=== PATIENT | male | born 1975 | race Two or more races ===

== ENCOUNTER 2023-12-23 23:57 | Emergency (ER) | payer MEDICAID, OTHER ==
[~2023-12-23] VITALS: Ht 172.7 cm; Wt 110.0 kg
[2023-12-24 00:18] VITALS: TEMP 98.2
[2023-12-24] MEDS: hydrALAZINE HCL 20 MG/ML VL IV ONE ×2 (00:32→04:13)
[2023-12-24] MEDS: OXYMETAZOLINE HCL 0.05 % NASAL SPRAY 15ML EACHNOSTRI ONE (00:32)
[2023-12-24] MEDS: cloNIDine HCL 0.1 MG TAB PO ONE ×2 (00:32→04:11)
[2023-12-24 00:35] LABS: Basophils # (auto) 0.1 10 ^3/uL (0-0.2); Eosinophils # (auto) 1.1 10 ^3/uL (0-0.8); Eosinophils % (auto) 10.1 % (0.0-7.0); Hematocrit 45.2 % (41.0-53.0); Hemoglobin 15.9 g/dL (13.5-17.5); Lymphocytes # (auto) 3.2 10 ^3/uL (0.4-5.4); Lymphocytes % (auto) 29.2 % (10.0-50.0); Mean Corpuscular Hemoglobin 30.6 pg (28.0-32.0); Mean Corpuscular Hgb Conc. 35.1 g/dL (32.0-36.0); Monocytes # (auto) 0.9 10 ^3/uL (0-1.3); Monocytes % (auto) 8.4 % (0.0-12.0); Neutrophils # (auto) 5.5 10 ^3/uL (1.6-8.6); Neutrophils % (auto) 51.3 % (37.0-80.0); White Blood Cell 10.8 10^3/uL (4.4-10.8)
[2023-12-24 01:38] LABS: Alanine Aminotransferase 24 U/L (7-40); Albumin 4.2 g/dL (3.2-4.8); Alkaline Phosphatase 105 U/L (46-116); Anion Gap 7 (5-15); Aspartate Aminotransferase 18 U/L (13-40); BUN/Creatinine Ratio 7.8 (10.0-20.0); Bilirubin, Total 1.4 mg/dL (0.2-1.0); Blood Urea Nitrogen 12 mg/dL (9-23); Calcium 9.2 mg/dL (8.7-10.4); Carbon Dioxide 30 mmol/L (20-30); Chloride 104 mmol/L (98-107); Glucose 110 mg/dL (74-106); Potassium 3.6 mmol/L (3.5-5.1); Sodium 141 mmol/L (136-145); Total Protein 6.9 g/dL (5.7-8.2)
[2023-12-24] MEDS ORDERED: AML5T GT (04:42)
[2023-12-24] MEDS ORDERED: CEPH250C PO (04:42)
[2023-12-24] MEDS ORDERED: LOSA-535 PO (04:42)
[2023-12-24 06:39] VITALS: BP 175/72; PULSE 76; RESP 16; O2SAT 96
[2023-12-24] MEDS: CEPHALEXIN 250 MG CAP PO ONE ×2 (07:02→07:08)
== END 2023-12-24 07:20 | disposition home or self-care (01) ==
LOC: ER 23:57
DX: R04.0 Epistaxis (principal); I10 Essential (primary) hypertension
CPT/HCPCS: 36415; 80053; 85025; 93005; 96374; 96376; 99285; J0360

== ENCOUNTER 2023-12-24 22:25 | Emergency (ER) | payer OTHER ==
[~2023-12-24] VITALS: Ht 172.7 cm; Wt 123.4 kg
[~2023-12-24 22:25] MED LIST: AML5T GT; CEPH250C PO; LOSA-535 PO
[2023-12-24] MEDS: cloNIDine HCL 0.1 MG TAB PO ONE (22:54)
[2023-12-25] MEDS: hydrALAZINE HCL 20 MG/ML VL IV ONE (00:15)
[2023-12-25 01:12] VITALS: BP 149/92
[2023-12-25 01:45] VITALS: PULSE 82; RESP 16; O2SAT 99
== END 2023-12-25 01:47 | disposition home or self-care (01) ==
LOC: ER 22:25
DX: R04.0 Epistaxis (principal); I10 Essential (primary) hypertension; Z79.899 Other long term (current) drug therapy
CPT/HCPCS: 96374; 99283; J0360